=== PATIENT | male | born 1975 | race African-American/Black ===

== ENCOUNTER 2018-08-01 10:44 | Emergency (ER) | payer BC ==
[~2018-08-01] VITALS: Ht 175.3 cm; Wt 108.9 kg
--- NOTE | ~2018-08-01 | EKG ---
[address] [address] ELECTROCARDIOGRAM REPORT Name: VINNY CAMPOS Room #: DEP CODY Blandon#: [id number] Admission: 08/01/18 Attend Phys: Discharge: 08/01/18 Date of : 71 Report #: [id number] THIS REPORT FOR: //name// [facility] ED Test Date: 2018-08-01 Test Time: 10:56:40 Pat Name: VINNY CAMPOS Department: Room: Gender: Machine [employer]: : 1975 Requested By: Mindy Garg Order Number: [id number] MD: Juan Cool Measurements Intervals [place] Rate: 75 P: 32 IA: 159 QRS: 76 QRSD: 91 T: 25 QT: 349 QTc: 390 Interpretive Statements Sinus rhythm No previous ECG available for comparison Electronically Signed On 08-02-2018 13:23:07 CDT by Juan Cool [email or web address] <ELECTRONICALLY SIGNED> By: Juan Cool MD 08/02/18 1323 [id number] [id number] Juan Cool MD /EPI
[2018-08-01] MEDS ORDERED: COZAAR 25 MG TA25 M1 PO (11:25)
[2018-08-01 11:35] LABS: HEMATOCRIT 41.5 % (42.0-52.0); HEMOGLOBIN 13.9 gm/dL (14.0-18.0); MCH 30.8 pg (26.0-34.0); MCHC 33.5 g/dL (28.0-37.0); MCV 91.7 fL (80.0-100.0); RBC 4.53 mil/uL (4.50-6.00); RDW 12.7 % (10.5-14.5); WBC 5.1 thou/uL (4.0-11.0)
[2018-08-01 11:46] LABS: ANION GAP 4 mmol/L (7-16); BUN 12 mg/dL (7-18); CALCIUM 9.7 mg/dL (8.5-10.1); CHLORIDE 104 mmol/L (98-107); CO2 27 mmol/L (21-32); CREATININE 0.9 mg/dL (0.7-1.3); GLUCOSE 104 mg/dL (74-106); POTASSIUM 3.9 mmol/L (3.5-5.1); SODIUM 135 mmol/L (136-145)
[2018-08-01 11:54] LABS: TROPONIN-I <0.06 ng/mL (<0.06)
[2018-08-01 12:40] VITALS: BP 122/69
== END 2018-08-01 12:52 | disposition home or self-care (01) ==
LOC: ER 10:44
PROVIDERS: Student in an Organized Health Care Education/Training Program
DX: R07.89 Other chest pain (principal); I10 Essential (primary) hypertension